=== PATIENT | female | born 1960 | race Caucasian/White ===

== ENCOUNTER 2018-07-25 14:02 | Outpatient (CLI) | payer MEDICAID ==
--- NOTE | 2018-07-25 15:46 | XRAY Report ---
Reason: PERSONAL HX OF TUBERCULOSIS Procedure Date: 07/25/2018 Accession Number: [id number] / [id number] Procedure: XRN - Chest 2 View X-Ray CPT Code: 63377 FULL RESULT: EXAM: CHEST RADIOGRAPHY EXAM DATE: 07/25/2018 02:48 PM. CLINICAL HISTORY: Personal history of tuberculosis. COMPARISON: None. TECHNIQUE: 2 views. FINDINGS: Lungs/Pleura: No focal opacities evident. No pleural effusion. No pneumothorax. Normal volumes. Mediastinum: Heart and mediastinal contours are unremarkable with no definite plain radiographic evidence of calcified mediastinal or hilar lymph nodes. Other: None. IMPRESSION: No evidence of active airspace disease and no definite calcified mediastinal/hilar lymph nodes. RADIA
== END 2018-07-25 14:03 | disposition home or self-care (01) ==
LOC: EDSEX → DI.N 14:02
PROVIDERS: ATTEND Naprapath
DX: Z86.11 Personal history of tuberculosis (principal)
CPT/HCPCS: 71046

== ENCOUNTER 2018-07-25 14:07 | Outpatient (CLI) | payer MEDICAID ==
--- NOTE | 2018-07-26 10:40 | Mammography Report ---
Reason: screening exam Procedure Date: 07/25/2018 Accession Number: [id number] / [id number] Procedure: MGN - Screening Mammo Dig w/Implants CPT Code: FULL RESULT: EXAM: Screening Mammo Dig w/Implants DATE: 07/25/2018 2:49 PM CLINICAL HISTORY: Screening examination. TECHNIQUE: (B) - Bilateral CC and MLO views were obtained. COMPARISON: None PARENCHYMAL PATTERN: (A) - The breasts demonstrate scattered fibroglandular densities bilaterally. FINDINGS: Bilateral breast implants are intact. There are no suspicious masses, calcifications, or areas of distortion. IMPRESSION: Negative examination. BI-RADS category 1. RECOMMENDATION: (ANNUAL) - Recommend routine annual screening mammography. BI-RADS CATEGORY: (1) - Negative. STANDARD QUALIFYING STATEMENTS: 1. This examination was reviewed with the aid of Computer-Aided Detection (CAD). 2. A negative or benign imaging report should not preclude biopsy if clinically suspicious findings are present. 3. Dense breasts may obscure an underlying neoplasm. 4. This examination was reviewed without the aid of 3D breast imaging (tomosynthesis).
== END 2018-07-25 14:08 | disposition home or self-care (01) ==
LOC: DI.N 14:07
PROVIDERS: ATTEND Naprapath
DX: Z12.31 Encounter for screening mammogram for malignant neoplasm of breast (principal)
CPT/HCPCS: 77067

== ENCOUNTER 2018-11-25 18:10 | Emergency (ER) | payer MEDICAID ==
--- NOTE | 2018-11-25 18:38 | ED Physician Documentation ---
PD HPI GI BLEED - Stated complaint Stated Complaint: FEMALE /BLEED/DIZZY - Chief complaint Chief Complaint: Abd Pain - History obtained from History obtained from: Patient - History of Present Illness Timing - onset: How many days ago (8) Timing - duration: Days (8) Timing - details: Gradual onset, Waxing and waning Associated symptoms: BRBPR (small amounts red blood with BMs the past week, increased to more blood with small clots the past 1-2 days. Having persistent LLQ pain. No prior similar.), Abdominal pain (LLQ). No: Vomiting, Diarrhea, Constipation Contributing factors: No: Sick contact, Bad food, Recent antibiotics Improved by: No: Eating, BM Worsened by: No: Eating Similar symptoms before: Has not had sx before Recently seen: Not recently seen Review of Systems Constitutional: denies: Fever, Chills, Myalgias Nose: denies: Rhinorrhea / runny nose, Congestion Throat: denies: Sore throat Cardiac: denies: Chest pain / pressure Respiratory: denies: Cough GI: reports: Abdominal Pain, Nausea, Bloody / black stool (bright red, no melena). denies: Abdominal Swelling, Vomiting, Constipation, Diarrhea : denies: Dysuria, Frequency, Discharge, Vaginal bleeding Skin: denies: Rash Musculoskeletal: denies: Back pain Neurologic: reports: Generalized weakness. denies: Focal weakness, Numbness, Near syncope PD PAST MEDICAL HISTORY - Past Medical History Cardiovascular: None Respiratory: None GI: None - Past Surgical History Past Surgical History: No - Present Medications Home Medications: Ambulatory Orders Medication Instructions Recorded Confirmed Amox/Clav 875/125 [Augmentin] 1 each PO Q12H #14 tablet 11/25/18 Hormones 11/25/18 Naproxen 500 mg PO BID #14 tablet 11/25/18 - Allergies Allergies/Adverse Reactions: Allergies Allergy/AdvReac Type Severity Reaction Status Date / Time No Known Drug Allergies Allergy Verified 11/25/18 18:31 PD ED PE NORMAL - Vitals Vital signs reviewed: Yes - General General: Alert and oriented X 3, No acute distress, Well developed/nourished - HEENT HEENT: Moist mucous membranes, Pharynx benign - Neck Neck: Supple, no meningeal sign, No adenopathy - Cardiac Cardiac: RRR, No murmur - Respiratory Respiratory: Clear bilaterally - Abdomen Abdomen: Normal bowel sounds, Soft, Non distended, No organomegaly, Other (tender without guarding nor percussion tenderness LLQ. No rebound tenderness. ) - Female Female : Deferred - Rectal Rectal: Other (no hemorrhoids. Small trace red blood in vault. No clots nor melena appearance. ) - Back Back: No CVA TTP - Derm Derm: Normal color, Warm and dry - Extremities Extremities: No deformity, No tenderness to palpate, No edema, No calf tenderness / cord - Neuro Neuro: Alert and oriented X 3, No motor deficit, Normal speech Results - Vitals Vitals: Oxygen O2 Source Room air - Labs Labs: Laboratory Tests 11/25/18 11/25/18 11/25/18 18:55 18:55 18:55 WBC 5.3 RBC 3.92 L Hgb 12.7 Hct 38.2 MCV 97.4 MCH 32.4 H MCHC 33.2 RDW 13.0 Plt Count 229 MPV 9.4 Neut # (Auto) 2.7 Lymph # (Auto) 1.8 [place] # (Auto) 0.6 Eos # (Auto) 0.1 Baso # (Auto) 0.0 Absolute Nucleated RBC 0.00 Nucleated RBC % 0.0 PT 10.9 INR 1.0 APTT 32.9 Sodium Potassium Chloride Carbon Dioxide Anion Gap BUN Creatinine Estimated GFR (MDRD) Glucose Calcium Total Bilirubin AST ALT Alkaline Phosphatase Total Protein Albumin Globulin Albumin/Globulin Ratio Lipase Blood Type O POSITIVE Antibody Screen NEGATIVE 11/25/18 18:55 WBC RBC Hgb Hct MCV MCH MCHC RDW Plt Count MPV Neut # (Auto) Lymph # (Auto) [place] # (Auto) Eos # (Auto) Baso # (Auto) Absolute Nucleated RBC Nucleated RBC % PT INR APTT Sodium 140 Potassium 3.6 Chloride 106 Carbon Dioxide 25 Anion Gap 9.0 BUN 13 Creatinine 0.7 Estimated GFR (MDRD) 86 L Glucose 180 H Calcium 9.7 Total Bilirubin 0.4 AST 22 ALT 19 Alkaline Phosphatase 56 Total Protein 7.0 Albumin 4.1 Globulin 2.9 Albumin/Globulin Ratio 1.4 Lipase 31 Blood Type Antibody Screen - Rads (name of study) abd/pelvic CT Radiology: Prelim report reviewed (mild to moderate diverticulosis; no masses nor focal lesions. ), See rad report PD MEDICAL DECISION MAKING - ED course Complexity details: reviewed results (no acute process seen. Has moderate diverticulosis and with her LLQ pain and hematachezia, I presume some localized diverticulitis not apparent on CT. Will treat that way. Suggested having follow up colonoscopy in near future even if improved. ), considered differential, d/w patient Departure - Departure Disposition: 01 Home, Self Care Clinical Impression: Acute diverticulitis, Acute lower GI bleeding Condition: Stable Record reviewed to determine appropriate education?: Yes Instructions: ED Hematochezia Stable Prescriptions: Amox/Clav 875/125 [Augmentin] 1 each PO Q12H #14 tablet Naproxen 500 mg PO BID #14 tablet Comments: Stay well-hydrated. Your CT scan showed diverticula in the lower left intestine and given the discomfort in that area as well as the rectal bleeding, I presume there is some diverticulitis. There was not an obviously identified abscess or locus of diverticulitis on the scan per se. We will treat this with staying well-hydrated and anti-inflammatories of naproxen twice daily for a week as well as Augmentin twice daily for a week for presumed early infection. That would be the most likely cause of it to be bleeding. Your blood count is good so you will are still in a safe margin regarding a bit more bleeding. So we will see how this does over the next 2 to 3 days and see if it clears up with the bleeding and the pain in the lower belly. If you not completely resolved by Wednesday, then return to the ER for further evaluation. If you have significant increase in bleeding or pain or fever meanwhile, then return as well. Discharge Date/Time: 11/25/18 21:00
[2018-11-25] MEDS ORDERED: SODIUM CHLORIDE 0.9% 1,000 ML IV ONE (18:53)
[2018-11-25 19:05] LABS: BASOPHILS % (AUTO) 0.6 %; EOSINOPHILS # (AUTO) 0.1 10^3/uL (0.0-0.7); EOSINOPHILS % (AUTO) 1.5 %; HGB - HEMOGLOBIN 12.7 g/dL (12.0-16.0); LYMPHOCYTES # (AUTO) 1.8 10^3/uL (1.5-3.5); LYMPHOCYTES % (AUTO) 34.2 %; MEAN CORPUSCULAR HEMOGLOBIN 32.4 pg (27.0-31.0); MEAN CORPUSCULAR HGB CONC 33.2 g/dL (32.0-36.0); MEAN CORPUSCULAR VOLUME 97.4 fL (81.0-99.0); MEAN PLATELET VOLUME 9.4 fL (7.9-10.8); MONOCYTES # (AUTO) 0.6 10^3/uL (0.0-1.0); NEUTROPHILS # (AUTO) 2.7 10^3/uL (1.5-6.6); NEUTROPHILS % (AUTO) 51.5 %; PLT - PLATELET COUNT 229 10^3/uL (130-450); RED BLOOD COUNT 3.92 10^6/uL (4.20-5.40); WHITE BLOOD COUNT 5.3 x10^3/uL (4.8-10.8)
[2018-11-25] MEDS ORDERED: IOVERSOL 320 100 ML VIAL IVP ONE ×2 (19:07→19:39)
[2018-11-25 19:21] LABS: ALBUMIN 4.1 g/dL (3.2-5.5); ALBUMIN/GLOBULIN RATIO 1.4 (1.0-2.2); BILIRUBIN,TOTAL 0.4 mg/dL (0.2-1.0); CALCIUM 9.7 mg/dL (8.5-10.3); CREATININE 0.7 mg/dL (0.4-1.0); PT - PROTHROMBIN TIME 10.9 secs (9.9-12.6)
[2018-11-25 19:29] LABS: PARTIAL THROMBOPLASTIN TIME 32.9 secs (24.9-33.3)
--- NOTE | 2018-11-25 20:08 | CT Report ---
Reason: LLQ pain and rectal bleeding for a week Procedure Date: 11/25/2018 Accession Number: [id number] / [id number] Procedure: CT - Abdomen/Pelvis W CPT Code: FULL RESULT: EXAM: CT ABDOMEN AND PELVIS EXAM DATE: 11/25/2018 07:33 PM. CLINICAL HISTORY: Left lower quadrant pain and rectal bleeding for 1 week. COMPARISONS: None. TECHNIQUE: Routine helical CT imaging was performed through the abdomen and pelvis. IV contrast: OPTI 320 100ML. Enteric contrast: No. Reconstructions: Coronal and sagittal. In accordance with CT protocol optimization, one or more of the following dose reduction techniques were utilized for this exam: automated exposure control, adjustment of mA and/or KV based on patient size, or use of iterative reconstructive technique. FINDINGS: Lung Bases: Unremarkable. Liver: Normal. No masses. Gallbladder/Bile Ducts: Unremarkable. Spleen: Normal. Pancreas: Normal. Adrenal Glands: Normal. Kidneys: Normal. No masses or hydronephrosis. Peritoneal Cavity/Bowel: Mild to moderate diverticulosis of the sigmoid and descending colon present. No acute inflammatory changes or mass lesion identified. No bowel obstruction or constipation evident. The appendix is well visualized and normal. Pelvic Organs: The bladder, uterus, adnexa and rectum are within normal limits. Vasculature: No aneurysms or other significant abnormality. Bones: Moderate L5-S1 disk space loss and degenerative disease noted. Other: None. IMPRESSION: 1. No bowel inflammatory process, mass or obstruction evident. 2. Mild to moderate distal colonic diverticulosis. RADIA
[2018-11-25] MEDS ORDERED: AMOX/CLAV 875 MG/125 MG TABLET PO STA (20:30)
[2018-11-25] MEDS ORDERED: KETOROLAC 15 MG/ML VIAL IVP STA (20:30)
[2018-11-25] MEDS ORDERED: DEXAMETHASONE 10 MG/ML VIAL IVP STA (20:30)
[2018-11-25 20:55] VITALS: BP 147/74
== END 2018-11-25 21:00 | disposition home or self-care (01) ==
LOC: ED 18:10
DX: K57.92 Diverticulitis of intestine, part unspecified, without perforation or abscess without bleeding (principal)
CPT/HCPCS: 36415; 74177; 80053; 83690; 85025; 85610; 85730; 86850; 86900; 86901; 96361; 96374; 96375; 99284; A9270; Q9967

== ENCOUNTER 2019-02-04 15:06 | Emergency (ER) | payer MEDICAID ==
[2019-02-04 15:13] VITALS: BP 139/78
--- NOTE | 2019-02-04 15:37 | ED Physician Documentation ---
PD HPI FEMALE - Stated complaint Stated Complaint: FEMALE - Chief complaint Chief Complaint: UTI - History obtained from History obtained from: Patient - History of Present Illness Timing - onset: How many days ago Timing - duration: Weeks (1) Timing - details: Gradual onset Associated symptoms: Abdominal pain, Back pain, Dysuria, Urinary frequency, Other (Urinary hesitancy). No: Fever, Vaginal bleeding, Vaginal discharge, Hematuria Contributing factors: No: , Sexually active Recently seen: Not recently seen - Additional information Additional information: Is a 58-year-old woman who presents with complaints of pressure and suprapubic swelling that is been there throughout the week at work. 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 She been having issues all week a lot of burning and hesitancy and only dribbling when she does urinate. She has not seen any blood. She denies sexual activity. She does have some lower back pain. She is perimenopausal and just has sporadic menstrual cycles and using compounded hormones. She has had urinary tract infections in the past but none for years she cannot remember the last [employer] appointment. No nausea or vomiting or fever. Review of Systems Constitutional: denies: Fever GI: denies: Nausea, Vomiting : reports: Dysuria, Frequency, Hesitancy, Irregular menses (Sporadic menses). denies: Hematuria, Vaginal bleeding Musculoskeletal: reports: Back pain PD PAST MEDICAL HISTORY - Past Medical History Cardiovascular: None Respiratory: None GI: None - Past Surgical History Past Surgical History: No - Present Medications Home Medications: Ambulatory Orders Medication Instructions Recorded Confirmed Amox/Clav 875/125 [Augmentin] 1 each PO Q12H #14 tablet 11/25/18 Hormones 11/25/18 Naproxen 500 mg PO BID #14 tablet 11/25/18 Nitrofurantoin Monohyd/M-Cryst 100 mg PO BID #14 capsule 02/04/19 [Macrobid 100 mg Capsule] Phenazopyridine HCl [Pyridium] 200 mg PO TID PRN #6 tablet 02/04/19 - Allergies Allergies/Adverse Reactions: Allergies Allergy/AdvReac Type Severity Reaction Status Date / Time No Known Drug Allergies Allergy Verified 11/25/18 18:31 - Social History Does the pt smoke?: No Smoking Status: Never smoker Does the pt drink ETOH?: Yes Does the pt have substance abuse?: No - POLST Patient has POLST: No PD ED PE NORMAL - Vitals Vital signs reviewed: Yes - General General: Alert and oriented X 3, No acute distress, Well developed/nourished - HEENT HEENT: Atraumatic - Cardiac Cardiac: RRR, No murmur - Respiratory Respiratory: No respiratory distress - Abdomen Abdomen: Normal bowel sounds, Soft, Other (Minimal suprapubic tenderness) - Back Back: No CVA TTP - Derm Derm: Normal color, No rash - Extremities Extremities: No edema - Neuro Neuro: Alert and oriented X 3, Normal speech Results - Vitals Vitals: Vital Signs - 24 hr 02/04/19 15:10 Temperature 36.9 C Heart Rate 87 Respiratory 14 Rate Blood Pressure 139/78 H O2 Saturation 100 Oxygen O2 Source Room air - Labs Labs: Laboratory Tests 02/04/19 15:29 Urine Color YELLOW Urine Clarity HAZY Urine pH 7.0 Ur Specific [place] 1.015 Urine Protein NEGATIVE Urine Glucose (UA) NEGATIVE Urine Ketones NEGATIVE Urine Occult Blood NEGATIVE Urine Nitrite NEGATIVE Urine Bilirubin NEGATIVE Urine Urobilinogen 0.2 (NORMAL) Ur Leukocyte Esterase SMALL H Urine RBC 11-25 H Urine WBC >25 H Ur Squamous Epith Cells FEW Squamous Urine Bacteria Few Ur Microscopic Review INDICATED Urine Culture Comments INDICATED PD MEDICAL DECISION MAKING - ED course Complexity details: reviewed results, d/w patient ED course: Urinalysis does show leukocyte esterase with greater than 25 white blood cells per high-power field and cultures been obtained. Patient was placed on Macrobid twice daily for 7 days, instructed to drink lots of water and given prescription for Pyridium 200 mg 3 times daily as needed for 3 days. Follow-up if the urinary symptoms are not improving. A culture has been set up. Departure - Departure Disposition: 01 Home, Self Care Clinical Impression: Urinary tract infection Qualifiers: Urinary tract infection type: acute cystitis Hematuria presence: without hematuria Qualified Code(s): N30.00 - Acute cystitis without hematuria Condition: Good Instructions: ED UTI Cystitis Female Follow-Up: SHIVAM CELAYA [Primary Care Provider] - Prescriptions: Nitrofurantoin Monohyd/M-Cryst [Macrobid 100 mg Capsule] 100 mg PO BID #14 capsule Phenazopyridine HCl [Pyridium] 200 mg PO TID PRN #6 tablet PRN Reason: dysuria Comments: Make sure that you are drinking plenty of water. Take the Macrobid antibiotic twice a day for 7 days. May use the Pyridium tablets up to 3 times a day if needed for the next 2 days. Do not wear contact lenses if you are taking the Pyridium and it may turn your urine bright orange. Follow-up with your primary care provider if your symptoms are not improving in the next 48 hours or return if they are worsening to include fever, vomiting or increasing back pain.
[2019-02-04 15:39] LABS: BILIRUBIN,URINE NEGATIVE (NEGATIVE); GLUCOSE, URINE (UA) NEGATIVE (NEGATIVE); KETONES,URINE (UA) NEGATIVE (NEGATIVE); LEUKOCYTE ESTERASE, URINE SMALL (NEGATIVE); NITRITE,URINE NEGATIVE (NEGATIVE); OCCULT BLOOD,URINE NEGATIVE (NEGATIVE); PROTEIN,URINE NEGATIVE (NEGATIVE); UROBILINOGEN,URINE 0.2 (NORMAL) E.U./dL (NORMAL)
[2019-02-04 15:41] LABS: CLARITY,URINE HAZY (CLEAR)
[2019-02-04 15:52] LABS: BACTERIA,URINE Few /HPF (None Seen); SQUAMOUS EPITHELIAL CELL,UR FEW Squamous (<= Few)
== END 2019-02-04 16:24 | disposition home or self-care (01) ==
LOC: ED 15:06
DX: N30.00 Acute cystitis without hematuria (principal)
CPT/HCPCS: 81001; 81003; 87077; 87086; 87181; 99283; 99284

== ENCOUNTER 2020-04-18 15:14 | Outpatient (CLI) | payer MEDICAID ==
--- OUTSIDE RECORDS SUMMARY | 2020-04-24 01:16 | EXTERNAL MEDICAL SUMMARY RPT | Continuity of Care Document ---
:1960 Demographics Phone Unavailable Preferred Language Unknown Marital Status Unknown Gnosticism Affiliation Unknown Race Unknown Ethnic Group Unknown Author Organization [place] Address [address] [phone] Phone Care Team Providers Name Role Phone SHIVAM CELAYA Unavailable Unavailable Allergies date description facility AMOXICILLIN [facility] IODINATED CONTRAST MEDIA [facility] METRIZAMIDE [facility] DILTIAZEM [facility] IODINE [facility] No Known Drug Allergies [facility] Results test status date ordered by attending specimen luz e null F 2020-04-18 LANG.99 JAE DARCI 04-18 15:15:00 10:50:00 facility observation status value reference units lab [facility] NEGAT[facility] unknown See [facility] [place] s eparate report - Report scanned to Patient' s EMR. Testing [facility] History date description facility [id number]
== END 2020-04-18 15:15 | disposition home or self-care (01) ==
LOC: COV 15:14
PROVIDERS: ATTEND Family Medicine
DX: R05 Cough (principal); R06.02 Shortness of breath; M79.10 Myalgia, unspecified site; R68.83 Chills (without fever); R07.0 Pain in throat; R19.7 Diarrhea, unspecified; R09.81 Nasal congestion; J34.89 Other specified disorders of nose and nasal sinuses; Z20.822 Contact with and (suspected) exposure to COVID-19

== ENCOUNTER 2020-04-24 13:30 | Emergency (ER) | payer MEDICAID ==
[2020-04-24 14:26] LABS: BASOPHILS % (AUTO) 0.8 %; EOSINOPHILS # (AUTO) 0.2 10^3/uL (0.0-0.7); EOSINOPHILS % (AUTO) 3.3 %; LYMPHOCYTES # (AUTO) 1.3 10^3/uL (1.5-3.5); LYMPHOCYTES % (AUTO) 26.9 %; MEAN CORPUSCULAR HEMOGLOBIN 31.7 pg (27.0-31.0); MEAN CORPUSCULAR HGB CONC 32.8 g/dL (32.0-36.0); MEAN CORPUSCULAR VOLUME 96.6 fL (81.0-99.0); MEAN PLATELET VOLUME 9.2 fL (7.9-10.8); MONOCYTES # (AUTO) 0.5 10^3/uL (0.0-1.0); MONOCYTES % (AUTO) 10.4 %; NEUTROPHILS # (AUTO) 2.9 10^3/uL (1.5-6.6); NEUTROPHILS % (AUTO) 58.4 %; PLT - PLATELET COUNT 224 10^3/uL (130-450); RED BLOOD COUNT 4.73 10^6/uL (4.20-5.40); RED CELL DISTRIBUTION WIDTH 13.2 % (12.0-15.0); WHITE BLOOD COUNT 4.9 x10^3/uL (4.8-10.8)
[2020-04-24 14:40] LABS: ALBUMIN 4.1 g/dL (3.2-5.5); ALBUMIN/GLOBULIN RATIO 1.4 (1.0-2.2); BILIRUBIN,TOTAL 0.8 mg/dL (0.2-1.0); CREATININE 0.8 mg/dL (0.4-1.0); TOTAL PROTEIN 7.1 g/dL (6.7-8.2)
--- NOTE | 2020-04-24 15:00 | XRAY Report ---
PROCEDURE: Chest 1 View X-Ray INDICATIONS: Chest Pain TECHNIQUE: One view of the chest was acquired. COMPARISON: Chest x-ray 11/24/2018 FINDINGS: Surgical changes and devices: None. Lungs and pleura: No pleural effusions or pneumothorax. Lungs are clear. Mediastinum: Mediastinal contours appear normal. Heart size is normal. Bones and chest wall: No suspicious bony lesions. Overlying soft tissues appear unremarkable. IMPRESSION: No acute pulmonary process. Reviewed by: Karolina Thompson MD on 04/24/2020 2:59 PM [facility] Approved by: Karolina Thompson MD on 04/24/2020 2:59 PM [facility] Station ID: [id number]
--- NOTE | 2020-04-24 15:29 | ED Physician Documentation ---
PD HPI CHEST PAIN - Stated complaint Stated Complaint: SOA - Chief complaint Chief Complaint: Cardiac - History obtained from History obtained from: Patient - Additional information Additional information: 59-year-old woman with history of left bundle branch block became sick about 6 days ago with body aches, fevers, shortness of breath and palpitations. She got checked for coronavirus which was negative. She still has the palpitations which are most concerning to her. It is like a hard heartbeat and then a skip. There is no pain with it. She continues to be short of breath. Denies pedal e mil or calf pain. Review of Systems Ten Systems: 10 systems reviewed and negative Constitutional: reports: Fever, Chills Cardiac: reports: Palpitations Respiratory: reports: Dyspnea. denies: Cough PD PAST MEDICAL HISTORY - Past Medical History Cardiovascular: None Respiratory: None GI: None - Past Surgical History Past Surgical History: No - Present Medications Home Medications: Ambulatory Orders Medication Instructions Recorded Confirmed Amox/Clav 875/125 [Augmentin] 1 each PO Q12H #14 tablet 11/25/18 Hormones 11/25/18 Naproxen 500 mg PO BID #14 tablet 11/25/18 Nitrofurantoin Monohyd/M-Cryst 100 mg PO BID #14 capsule 02/04/19 [Macrobid 100 mg Capsule] Phenazopyridine HCl [Pyridium] 200 mg PO TID PRN #6 tablet 02/04/19 - Allergies Allergies/Adverse Reactions: Allergies Allergy/AdvReac Type Severity Reaction Status Date / Time No Known Drug Allergies Allergy Verified 04/24/20 13:44 - Social History Does the pt smoke?: No Smoking Status: Never smoker Does the pt drink ETOH?: Yes Does the pt have substance abuse?: No - POLST Patient has POLST: No PD ED PE NORMAL - Vitals Vital signs reviewed: Yes - General General: Alert and oriented X 3, No acute distress - HEENT HEENT: PERRL, EOMI - Neck Neck: Supple, no meningeal sign, No bony TTP - Cardiac Cardiac: RRR, No murmur - Respiratory Respiratory: No respiratory distress, Clear bilaterally - Abdomen Abdomen: Normal bowel sounds, Soft, Non tender - Back Back: No CVA TTP, No spinal TTP - Derm Derm: Normal color, Warm and dry - Extremities Extremities: No edema, No calf tenderness / cord - Neuro Neuro: Alert and oriented X 3, No motor deficit, No sensory deficit, Normal speech Results - Vitals Vitals: Vital Signs - 24 hr 04/24/20 04/24/20 04/24/20 13:36 15:43 16:23 Temperature 36.4 C L Heart Rate 75 77 75 Respiratory 14 18 19 Rate Blood Pressure 139/82 H 120/60 133/78 H O2 Saturation 98 100 99 Oxygen O2 Source Room air - EKG (time done) 1344 Rate: Rate (enter#) (68) Rhythm: NSR, LAE Intervals: LBBB Ischemia: Normal ST segments Computer interpretation: Agree with computer - Labs Labs: Laboratory Tests 04/24/20 04/24/20 04/24/20 14:20 14:20 14:20 WBC 4.9 RBC 4.73 Hgb 15.0 Hct 45.7 MCV 96.6 MCH 31.7 H MCHC 32.8 RDW 13.2 Plt Count 224 MPV 9.2 Neut # (Auto) 2.9 Lymph # (Auto) 1.3 L [place] # (Auto) 0.5 Eos # (Auto) 0.2 Baso # (Auto) 0.0 Absolute Nucleated RBC 0.00 Nucleated RBC % 0.0 Sodium 138 Potassium 4.3 Chloride 103 Carbon Dioxide 25 Anion Gap 10.0 BUN 15 Creatinine 0.8 Estimated GFR (MDRD) 74 L Glucose 134 H Calcium 10.0 Total Bilirubin 0.8 AST 30 ALT 27 Alkaline Phosphatase 86 Troponin I High Sens < 2.3 L B-Natriuretic Peptide Total Protein 7.1 Albumin 4.1 Globulin 3.0 Albumin/Globulin Ratio 1.4 Lipase 39 04/24/20 04/24/20 04/24/20 14:20 15:38 15:38 WBC RBC Hgb Hct MCV MCH MCHC RDW Plt Count MPV Neut # (Auto) Lymph # (Auto) [place] # (Auto) Eos # (Auto) Baso # (Auto) Absolute Nucleated RBC Nucleated RBC % Sodium Potassium Chloride Carbon Dioxide Anion Gap BUN Creatinine Estimated GFR (MDRD) Glucose Calcium Total Bilirubin AST ALT Alkaline Phosphatase Troponin I High Sens < 2.3 L B-Natriuretic Peptide 48 44 Total Protein Albumin Globulin Albumin/Globulin Ratio Lipase PD MEDICAL DECISION MAKING - ED course ED course: 59 yo F with known Left bundle branch block, palpitations in the setting of a viral syndrome, recent negative Covid test, will repeat, will observe her in the emergency department on the monitor and add on troponin and BNP to the basic work-up that has already been performed on my evaluation which includes basic blood work which is unremarkable and a 1 view chest x-ray which was negative. 59 yo Woman with known left bundle branch block presents with palpitations in the setting of an improving viral illness. BNP and troponin were added on and negative. She had no ectopy on the monitor while here. Prior to discharge patient asked for a flu swab. I discussed with her that since the rate of fluid in the community is very low, since she has been sick for a week and as such would not be a candidate for antviral therapy, And finally that there is a shortage of the swabs I do not think it is appropriate to perform flu testing and she is understanding. Departure - Departure Disposition: 01 Home, Self Care Clinical Impression: Heart palpitations, Viral syndrome Dyspnea Qualifiers: Dyspnea type: shortness of breath Qualified Code(s): R06.02 - Shortness of breath Condition: Good Record reviewed to determine appropriate education?: Yes Instructions: ED Dyspnea Shortness of Breath Follow-Up: Ilene Minor MD [Provider Admit Priv/Credential] - (She does clinic here in [place]) Comments: EKG showed left bundle branch block, nothing else concerning on labs or chest x- ray. No evidence of cardiac dysfunction or congestive heart failure. Reasonable given the timeframe to follow-up with a firepot operator and tender again. 1 is listed on this form. Return for new or worsening symptoms. You have a Covid test pending. You need to self quarantine until the result is done and negative. Do not leave your house. Do not get near anybody. The results should be done in 48 to 72 hours. We will call with a positive result, the fastest way to get a negative result for confirmation though is to go to the hospital website at [email or web address], click on the my [email or web address] tab and sign up for the patient portal. If any friends or family get sick and would like to have a Covid test done, but do not have signs or symptoms that would necessitate being hospitalized, we encourage testing through our coronavirus swabbing station, call [phone] to schedule an appointment.
[2020-04-24 16:23] VITALS: BP 133/78
== END 2020-04-24 16:37 | disposition home or self-care (01) ==
LOC: ED 13:30
DX: R00.2 Palpitations (principal); B34.9 Viral infection, unspecified; R06.02 Shortness of breath; Z20.822 Contact with and (suspected) exposure to COVID-19; I44.7 Left bundle-branch block, unspecified
CPT/HCPCS: 36415; 80053; 83690; 83880; 84484; 85025; 93005; 99284

== ENCOUNTER 2020-09-11 14:43 | Emergency (ER) | payer MEDICAID ==
[2020-09-11] MEDS ORDERED: SODIUM CHLORIDE 0.9% 1,000 ML IV STA (15:01)
[2020-09-11 15:13] LABS: BASOPHILS # (AUTO) 0.1 10^3/uL (0.0-0.1); BASOPHILS % (AUTO) 0.9 %; EOSINOPHILS # (AUTO) 0.1 10^3/uL (0.0-0.7); EOSINOPHILS % (AUTO) 2.5 %; HCT - HEMATOCRIT 44.4 % (37.0-47.0); HGB - HEMOGLOBIN 14.8 g/dL (12.0-16.0); LYMPHOCYTES # (AUTO) 1.8 10^3/uL (1.5-3.5); MEAN CORPUSCULAR HEMOGLOBIN 32.7 pg (27.0-31.0); MEAN CORPUSCULAR HGB CONC 33.3 g/dL (32.0-36.0); MEAN PLATELET VOLUME 9.2 fL (7.9-10.8); MONOCYTES # (AUTO) 0.6 10^3/uL (0.0-1.0); MONOCYTES % (AUTO) 11.1 %; NEUTROPHILS % (AUTO) 53.3 %; PLT - PLATELET COUNT 283 10^3/uL (130-450); RED BLOOD COUNT 4.53 10^6/uL (4.20-5.40); RED CELL DISTRIBUTION WIDTH 13.1 % (12.0-15.0); WHITE BLOOD COUNT 5.6 x10^3/uL (4.8-10.8)
[2020-09-11 15:15] LABS: BILIRUBIN,URINE NEGATIVE (NEGATIVE); CLARITY,URINE CLEAR (CLEAR); GLUCOSE, URINE (UA) NEGATIVE (NEGATIVE); KETONES,URINE (UA) NEGATIVE (NEGATIVE); LEUKOCYTE ESTERASE, URINE NEGATIVE (NEGATIVE); NITRITE,URINE NEGATIVE (NEGATIVE); OCCULT BLOOD,URINE NEGATIVE (NEGATIVE); PROTEIN,URINE NEGATIVE (NEGATIVE); UROBILINOGEN,URINE 0.2 (NORMAL) E.U./dL (NORMAL)
[2020-09-11 15:28] LABS: ALBUMIN 4.5 g/dL (3.2-5.5); ALBUMIN/GLOBULIN RATIO 1.3 (1.0-2.2); BILIRUBIN,TOTAL 0.7 mg/dL (0.2-1.0); CALCIUM 9.8 mg/dL (8.5-10.3); CREATININE 0.8 mg/dL (0.4-1.0); POTASSIUM 4.1 mmol/L (3.5-5.0); TOTAL PROTEIN 7.9 g/dL (6.7-8.2)
[2020-09-11] MEDS ORDERED: IOVERSOL 320 100 ML VIAL IVP ONE ×2 (16:38→21:25)
--- NOTE | 2020-09-11 17:04 | CT Report ---
PROCEDURE: Abdomen/Pelvis W INDICATIONS: LLQ abd pain CONTRAST: IV CONTRAST: Optiray 320 ml: 100 PO CONTRAST: *NO PO CONTRAST TECHNIQUE: After the administration of intravenous contrast, 5 mm thick sections acquired from the diaphragms to the symphysis. 5 mm thick coronal and sagittal reformats were acquired. For radiation dose reducti on, the following was used: automated exposure control, adjustment of mA and/or kV according to prem ent size. COMPARISON: 11/25/2018 FINDINGS: Image quality: Excellent. ABDOMEN: Lung bases: Lung bases are clear. Heart size is normal. Solid organs: Liver and spleen are normal in size and enhancement. Gallbladder is unremarkable. Sriram iary system is non dilated. Pancreas enhances normally. No adrenal nodules. Kidneys demonstrate no rmal size and enhancement, without hydronephrosis. Peritoneum and bowel: Bowel loops demonstrate normal wall thickness and caliber. No free fluid or a ir. There is sigmoid diverticulosis. There is mild inflammatory change in the surrounding fat consist ent with mild sigmoid diverticulitis. Nodes and vessels: No retroperitoneal or mesenteric adenopathy by size criteria. Aorta and inferior vena cava are normal in size. Incidental note made of the presence of a circumaortic left renal vein . Miscellaneous: No ventral hernias. PELVIS: Genitourinary: Bladder wall thickness is normal. Miscellaneous: No inguinal hernias or adenopathy. A 5.1 x 2.4 x 2.2 cm right adnexal cyst has devel oped. Bones: No suspicious bony lesions. No vertebral body compression fractures. IMPRESSION: 1. Mild sigmoid diverticulitis. 2. Development of a fluid-filled structure in the right adnexa measuring 5.1 x 2.4 x 2.2 cm. Differen tial diagnosis includes benign and neoplastic etiologies. Recommend further evaluation with pelvic ul trasound on a nonemergent basis. Reviewed by: Matt Valero MD on 09/11/2020 5:02 PM PDT Approved by: Matt Valero MD on 09/11/2020 5:02 PM PDT Station ID: [id number]
[2020-09-11 17:06] VITALS: BP 133/73
[2020-09-11] MEDS ORDERED: AMOX/CLAV 875 MG/125 MG TABLET PO STA (17:27)
--- NOTE | 2020-09-11 17:30 | ED Physician Documentation ---
PD HPI ABD PAIN - Stated complaint Stated Complaint: ABD PX & BLOATING - Chief complaint Chief Complaint: Abd Pain - History obtained from History obtained from: Patient - Additional information Additional information: Patient comes emergency department chief complaint of twinges of left flank and lower abdominal pain, as well as intermittent left leg weakness. Patient states that this has been going on for over a month, and that she is scheduled to see her primary doctor about it tomorrow. However, she decided to come to the emergency department today for further evaluation first. The patient denies any fevers or chills. No nausea or vomiting. No change in bowel habits. She has not experienced loss of bowel or bladder control. No vaginal bleeding. No dysuria or back pain. No sciatica. Patient has had a general feeling of being bloated in the abdomen. She has a history of diverticulitis previously. Patient denies any history of back issues. No right lower extremity weakness. The patient states she feels like her leg just gives out on her. She states that this happens when she gets the twinge of pain in her left lower quadrant. However, she states that the leg and hips themselves do not feel painful per se. Patient states that her strength is perfectly intact if she is not standing on the left leg and only noticed weakness in certain situations. No other complaints at this time. Review of Systems Ten Systems: 10 systems reviewed and negative Constitutional: reports: Reviewed and negative Eyes: reports: Reviewed and negative Ears: reports: Reviewed and negative Nose: reports: Reviewed and negative Throat: reports: Reviewed and negative Cardiac: reports: Reviewed and negative Respiratory: reports: Reviewed and negative GI: reports: Abdominal Pain. denies: Nausea : reports: Reviewed and negative Skin: reports: Reviewed and negative Musculoskeletal: reports: Reviewed and negative Neurologic: reports: Focal weakness Psychiatric: reports: Reviewed and negative Endocrine: reports: Reviewed and negative Immunocompromised: reports: Reviewed and negative PD PAST MEDICAL HISTORY - Past Medical History Cardiovascular: None Respiratory: None GI: None - Past Surgical History Past Surgical History: No - Present Medications Home Medications: Ambulatory Orders Medication Instructions Recorded Confirmed Amox/Clav 875/125 [Augmentin] 1 each PO Q12H #14 tablet 11/25/18 Hormones 11/25/18 Naproxen 500 mg PO BID #14 tablet 11/25/18 Nitrofurantoin Monohyd/M-Cryst 100 mg PO BID #14 capsule 02/04/19 [Macrobid 100 mg Capsule] Phenazopyridine HCl [Pyridium] 200 mg PO TID PRN #6 tablet 02/04/19 Amox/Clav 875/125 [Augmentin 1 tablet PO Q8H 10 Days #30 tablet 09/11/20 875/125 Tab] - Allergies Allergies/Adverse Reactions: Allergies Allergy/AdvReac Type Severity Reaction Status Date / Time No Known Drug Allergies Allergy Verified 09/11/20 14:57 - Social History Does the pt smoke?: No Smoking Status: Never smoker Does the pt drink ETOH?: Yes Does the pt have substance abuse?: No - POLST Patient has POLST: No PD ED PE NORMAL - Vitals Vital signs reviewed: Yes - General General: Alert and oriented X 3, No acute distress, Well developed/nourished - HEENT HEENT: Atraumatic, PERRL, EOMI, Moist mucous membranes - Neck Neck: Supple, no meningeal sign - Cardiac Cardiac: RRR, No murmur, No gallop, Strong equal pulses - Respiratory Respiratory: No respiratory distress, Clear bilaterally - Abdomen Abdomen: Soft, Non tender, Non distended - Derm Derm: Normal color, Warm and dry, No rash - Extremities Extremities: No deformity, No edema, No calf tenderness / cord - Neuro Neuro: Alert and oriented X 3, hands parter 2-12 intact, No motor deficit (5+ strength in bilateral lower extremities.), No sensory deficit, Normal speech - Psych Psych: Normal mood, Normal affect Results - Vitals Vitals: Vital Signs - 24 hr 09/11/20 09/11/20 09/11/20 14:52 15:01 17:00 Temperature 36.2 C L Heart Rate 76 77 65 Respiratory 14 18 19 Rate Blood Pressure 156/86 H 156/86 H 133/73 H O2 Saturation 98 100 100 Oxygen O2 Source Room air - Labs Labs: Laboratory Tests 09/11/20 09/11/20 09/11/20 14:52 15:07 15:07 WBC 5.6 RBC 4.53 Hgb 14.8 Hct 44.4 MCV 98.0 MCH 32.7 H MCHC 33.3 RDW 13.1 Plt Count 283 MPV 9.2 Neut # (Auto) 3.0 Lymph # (Auto) 1.8 Noble # (Auto) 0.6 Eos # (Auto) 0.1 Baso # (Auto) 0.1 Absolute Nucleated RBC 0.00 Nucleated RBC % 0.0 Sodium 140 Potassium 4.1 Chloride 102 Carbon Dioxide 28 Anion Gap 10.0 BUN 12 Creatinine 0.8 Estimated GFR (MDRD) 73 L Glucose 103 H Calcium 9.8 Total Bilirubin 0.7 AST 28 ALT 25 Alkaline Phosphatase 87 Total Protein 7.9 Albumin 4.5 Globulin 3.4 Albumin/Globulin Ratio 1.3 Lipase 32 Urine Color YELLOW Urine Clarity CLEAR Urine pH 7.0 Ur Specific Boyden 1.010 Urine Protein NEGATIVE Urine Glucose (UA) NEGATIVE Urine Ketones NEGATIVE Urine Occult Blood NEGATIVE Urine Nitrite NEGATIVE Urine Bilirubin NEGATIVE Urine Urobilinogen 0.2 (NORMAL) Ur Leukocyte Esterase NEGATIVE Ur Microscopic Review NOT INDICATED Urine Culture Comments NOT INDICATED - Rads (name of study) CT abd/pelvis Radiology: Final report received, EMP read indepedently, See rad report (Mild diverticulitis; new cystic mass L adnexa, benign vs malignant) PD MEDICAL DECISION MAKING - ED course Complexity details: reviewed results, re-evaluated patient, considered differential, d/w patient ED course: Patient was worked up with labs, urinalysis, and ultimately, CT scan of the abdomen and pelvis. Patient was found to have diverticulitis and a new cystic mass on the right ovary which could be benign or malignant per radiologist. I discussed both findings with the patient and started her on Augmentin. I emphasized how important it is for her to follow-up with [facility] to further evaluate this finding of the ovary as soon as possible. I have given her the contact information for a local [facility] clinic and patient states she will call very soon to make an appointment. We have discussed the usual indications for return. Departure - Departure Disposition: 01 Home, Self Care Clinical Impression: Diverticulitis of gastrointestinal tract, Adnexal mass Instructions: ED Diverticulitis, ED Cyst Ovarian Follow-Up: Roxann Alegria MD [Provider Admit Priv/Credential] - Prescriptions: Amox/Clav 875/125 [Augmentin 875/125 Tab] 1 tablet PO Q8H 10 Days #30 tablet Comments: Your labs and urinalysis look great. Your CT scan shows some mild diverticulitis for which you have been started on antibiotics today. Also show ing up on your CT scan is a new right ovarian cystic mass, which could be benign or cancerous. As such, it is important that you follow-up with gynecology as soon as possible to further evaluate this finding. Please take the antibiotics as directed until gone.
== END 2020-09-11 17:38 | disposition home or self-care (01) ==
LOC: ED 14:43
DX: K57.32 Diverticulitis of large intestine without perforation or abscess without bleeding (principal); N83.201 Unspecified ovarian cyst, right side
CPT/HCPCS: 36415; 74177; 80053; 81003; 83690; 85025; 99284; A9270; Q9967; 81001; 87086

== ENCOUNTER 2020-09-12 16:22 | Outpatient (CLI) | payer MEDICAID ==
--- NOTE | 2020-09-12 16:41 | XRAY Report ---
PROCEDURE: Chest 2 View X-Ray INDICATIONS: Asthma, history of TB TECHNIQUE: 2 view(s) of the chest. COMPARISON: 04/24/2020 FINDINGS: Surgical changes and devices: None. Lungs and pleura: No pleural effusions or pneumothorax. Lungs are clear. Mediastinum: Mediastinal contours are normal. Heart size is normal. Bones and chest wall: No suspicious bony abnormalities. Soft tissues appear unremarkable. IMPRESSION: No acute cardiopulmonary process demonstrated radiographically. Reviewed by: Robert Salvador MD on 09/12/2020 4:39 PM PDT Approved by: Robert Salvador MD on 09/12/2020 4:39 PM PDT Station ID: [id number]
== END 2020-09-12 16:23 | disposition home or self-care (01) ==
LOC: DI 16:22
PROVIDERS: ATTEND Naprapath
DX: J45.909 Unspecified asthma, uncomplicated (principal); Z86.11 Personal history of tuberculosis

== ENCOUNTER 2021-07-04 15:43 | Emergency (ER) | payer MEDICAID ==
--- NOTE | 2021-07-04 16:07 | ED Physician Documentation ---
PD HPI DYSPNEA - Stated complaint Stated Complaint: SOA/COUGH/LT SIDE PX/SORE THROAT - Chief complaint Chief Complaint: Resp - History obtained from History obtained from: Patient - Additional information Additional information: 61-year-old woman with history of left bundle branch block otherwise healthy presents with 2 weeks of nonproductive cough and worsening shortness of breath as well as pleuritic left lower chest pain that is much worse with coughing. She denies pedal edema or calf pain. No exertional chest pain. She is tried numerous [id number] regimens without relief. She has had low-grade tactile fevers. Review of Systems Constitutional: denies: Fever, Chills Nose: denies: Rhinorrhea / runny nose, Congestion Throat: denies: Sore throat Cardiac: denies: Chest pain / pressure, Palpitations Respiratory: reports: Dyspnea, Cough PD PAST MEDICAL HISTORY - Past Medical History Cardiovascular: None Respiratory: None GI: None - Past Surgical History Past Surgical History: No - Present Medications Home Medications: Ambulatory Orders Medication Instructions Recorded Confirmed Amox/Clav 875/125 [Augmentin] 1 each PO Q12H #14 tablet 11/25/18 Hormones 11/25/18 Naproxen 500 mg PO BID #14 tablet 11/25/18 Nitrofurantoin Monohyd/M-Cryst 100 mg PO BID #14 capsule 02/04/19 [Macrobid 100 mg Capsule] Phenazopyridine HCl [Pyridium] 200 mg PO TID PRN #6 tablet 02/04/19 Amox/Clav 875/125 [Augmentin 1 tablet PO Q8H 10 Days #30 tablet 09/11/20 875/125 Tab] Albuterol Sulf [Ventolin Hfa 1 - 2 puffs INH Q4HR PRN #1 inhaler 07/04/21 Inhaler] Amoxicillin 2 cap PO TID 5 Days #30 cap 07/04/21 Azithromycin [Zithromax] 1 tab PO DAILY #6 tablet 07/04/21 Benzonatate [Tessalon] 200 mg PO QID PRN #20 cap 07/04/21 - Allergies Allergies/Adverse Reactions: Allergies Allergy/AdvReac Type Severity Reaction Status Date / Time No Known Drug Allergies Allergy Verified 07/04/21 15:52 - Social History Does the pt smoke?: No Smoking Status: Never smoker Does the pt drink ETOH?: Yes Does the pt have substance abuse?: No - POLST Patient has POLST: No PD ED PE NORMAL - Vitals Vital signs reviewed: Yes - General General: Alert and oriented X 3, No acute distress - HEENT HEENT: Pharynx benign - Neck Neck: Supple, no meningeal sign, No bony TTP - Cardiac Cardiac: RRR, No murmur - Respiratory Respiratory: No respiratory distress, Other (Crackles L base, frequent cough) - Back Back: No CVA TTP, No spinal TTP - Derm Derm: Normal color, Warm and dry - Extremities Extremities: No edema, No calf tenderness / cord - Neuro Neuro: Alert and oriented X 3, Normal speech Results - Vitals Vitals: Vital Signs - 24 hr 07/04/21 15:48 Temperature 36.8 C Heart Rate 84 Respiratory 18 Rate Blood Pressure 177/88 H O2 Saturation 98 Oxygen O2 Source Room air - Rads (name of study) 1v cxr Radiology: EMP read contemporaneously PD MEDICAL DECISION MAKING - ED course ED course: 61-year-old woman presents with clinical pneumonia in the left base. Chest x- ray was clear but given the low sensitivity of x-ray for pneumonia in the typical clinical picture we will treat with antibiotics. Cough for 2 weeks and later developed pleuritic chest pain. She was feeling better here after Tessalon. She noted that she had been discussing with her daughter by phone who is an RN and wondering if she might need a CBC and troponin. I discussed with her that I thought the yield of this testing would be very low considering her normal vital signs, she is in normal sinus rhythm on the monitor. Only has pain when she coughs etc. After discussion she declined further testing. Departure - Departure Disposition: 01 Home, Self Care Clinical Impression: Pneumonia Qualifiers: Pneumonia type: due to unspecified organism Laterality: left Lung location: lower lobe of lung Qualified Code(s): J18.9 - Pneumonia, unspecified organism Condition: Good Record reviewed to determine appropriate education?: Yes Instructions: Pneumonia Dc Prescriptions: Albuterol Sulf [Ventolin Hfa Inhaler] 1 - 2 puffs INH Q4HR PRN #1 inhaler PRN Reason: Shortness Of Air/Wheezing Amoxicillin 2 cap PO TID 5 Days #30 cap Benzonatate [Tessalon] 200 mg PO QID PRN #20 cap PRN Reason: Cough Azithromycin [Zithromax] 1 tab PO DAILY #6 tablet Comments: I sent your prescriptions to [facility] in [place]. Call your doctor to arrange a follow-up appointment, make the next available appointment. In the interim, return anytime if worse or if new symptoms develop.
[2021-07-04] MEDS: BENZONATATE 100 MG CAPSULE PO STA (16:36)
--- NOTE | 2021-07-04 16:44 | XRAY Report ---
PROCEDURE: Chest 1 View X-Ray INDICATIONS: cough dyspnea TECHNIQUE: One view of the chest was acquired. COMPARISON: 09/12/2020 FINDINGS: Surgical changes and devices: None. Lungs and pleura: No pleural effusions or pneumothorax. Lungs are clear. Mediastinum: Mediastinal contours appear normal. Heart size is normal. Bones and chest wall: No suspicious bony lesions. Overlying soft tissues appear unremarkable. IMPRESSION: No acute cardiopulmonary process demonstrated radiographically. Reviewed by: Robert Salvador MD on 07/04/2021 4:42 PM PDT Approved by: Robert Salvador MD on 07/04/2021 4:42 PM PDT Station ID: [id number]
[2021-07-04 17:13] VITALS: BP 162/92
== END 2021-07-04 17:14 | disposition home or self-care (01) ==
LOC: ED 15:43
DX: J18.9 Pneumonia, unspecified organism (principal)
CPT/HCPCS: 71045; 99283; 99284; A9270

== ENCOUNTER 2023-01-21 12:40 | Emergency (ER) | payer OTHER, MEDICAID ==
[2023-01-21 12:52] VITALS: BP 146/85; O2SAT 98
--- NOTE | 2023-01-21 13:29 | ED Physician Documentation ---
PD HPI UPPER EXT INJURY - Stated complaint Stated Complaint: RT ELBOW PX - Chief complaint Chief Complaint: Ext Problem - History obtained from History obtained from: Patient - Additonal information Additional information: Patient is a 62-year-old female presenting for evaluation of right elbow pain that has been ongoing since early November. She states that she had a fall sometime in the middle of the summer but does not recall her pain necessarily starting right after that. She states that she feels more pain in the right elbow with lifting movements or twisting. She has not sought evaluation for this yet. Her PCP is in [facility] and it is not convenient for her to go there. She has tried occasional acetaminophen or ibuprofen without any significant improvement. She denies doing excess or repetitive movements here recently such as lifting or twisting. Denies radiation of pain elsewhere. Review of Systems Constitutional: denies: Fever Cardiac: denies: Chest pain / pressure Respiratory: denies: Dyspnea Musculoskeletal: reports: Joint pain PD PAST MEDICAL HISTORY - Past Medical History Cardiovascular: None Respiratory: None GI: None - Past Surgical History Past Surgical History: No - Present Medications Home Medications: Ambulatory Orders Medication Instructions Recorded Confirmed Compression Sleeve 1 ea .ROUTE PRN PRN #1 ea 01/21/23 Naproxen 250 mg PO BID PRN #20 tablet 01/21/23 Progesterone, Micronized 100 mg PO DAILY 01/21/23 01/21/23 [Prometrium] estradioL [Estrace] 1 mg PO DAILY 01/21/23 01/21/23 - Allergies Allergies/Adverse Reactions: Allergies Allergy/AdvReac Type Severity Reaction Status Date / Time No Known Drug Allergies Allergy Verified 01/21/23 12:46 - Social History Does the pt smoke?: No Smoking Status: Never smoker Does the pt drink ETOH?: Yes Does the pt have substance abuse?: No - POLST Patient has POLST: No PD ED PE NORMAL - General General: Alert and oriented X 3, No acute distress, Well developed/nourished - HEENT HEENT: Atraumatic - Neck Neck: Supple, no meningeal sign - Cardiac Cardiac: RRR, Strong equal pulses - Respiratory Respiratory: No respiratory distress, Clear bilaterally - Extremities Extremities: No deformity, Normal ROM s pain, No edema, Other (Tenderness over lateral epicondyle of the right elbow, normal range of motion, good strength with flexion and extension at the left elbow, distal pulses intact, no erythema or swelling) - Neuro Neuro: Alert and oriented X 3, No motor deficit, Normal speech Results - Vitals Vitals: Vital Signs - 24 hr 01/21/23 12:42 Temperature 36.4 C L Heart Rate 82 Respiratory 15 Rate Blood Pressure 146/85 H O2 Saturation 98 Oxygen O2 Source Room air PD Medical Decision Making - ED course Complexity details: reviewed results, re-evaluated patient, d/w patient ED course: Patient with right elbow pain that been present for a few months. She reports having a fall earlier this summer. Normal range of motion with no signs of a septic joint. Neurovascularly intact. No pain at the right shoulder or right wrist. An x-ray was obtained which I reviewed I see no fracture or dislocation. She does have tenderness over the lateral epicondyle and I explained my concern for epicondylitis.Discussed treatment options including a compression sleeve, anti-inflammatories and follow-up with PCP. Patient counseled on concerning symptoms to return for. Departure - Departure Disposition: 01 Home, Self Care Clinical Impression: Right elbow pain Condition: Stable Instructions: ED Epicondylitis Lateral Elbow Prescriptions: Compression Sleeve 1 ea .ROUTE PRN PRN #1 ea PRN Reason: Pain 5-7 Naproxen 250 mg PO BID PRN #20 tablet PRN Reason: Pain Comments: I do not see a broken or dislocated bone on your elbow x-ray. You likely have a tendinitis. I given you prescription for compression sleeve. I also sent a prescription for naproxen to [facility] [place]. I would recommend close follow-up with your primary care provider. At this time I would recommend ice, use of the compression sleeve, anti-inflammatories. You may need further evaluation or testing or even referral to physical therapy. Forms: PCP List Discharge Date/Time: 01/21/23 13:37
--- NOTE | 2023-01-21 13:33 | XRAY Report ---
PROCEDURE: Elbow 3 View RT INDICATIONS: pain x 3 months TECHNIQUE: 3 views of the elbow were acquired. COMPARISON: None. FINDINGS: Bones: No acute fractures or dislocations. No suspicious bony lesions. Soft tissues: No effusion. No suspicious soft tissue calcifications or masses. IMPRESSION: No acute osseous abnormality. If there is clinical concern or persistent symptoms, additional imaging such as repeat radiographs or advanced imaging (e.g. CT, MRI) may be helpful for further evaluation. Reviewed by: Santiago Conn MD on 01/21/2023 1:32 PM PDT Approved by: Santiago Conn MD on 01/21/2023 1:32 PM PDT Station ID: [id number]
== END 2023-01-21 13:37 | disposition home or self-care (01) ==
LOC: ED 12:40
DX: M25.521 Pain in right elbow (principal)
CPT/HCPCS: 99283

== ENCOUNTER 2023-01-25 14:58 | Outpatient (CLI) | payer OTHER, MEDICAID ==
--- NOTE | 2023-01-26 09:38 | Mammography Report ---
BILATERAL DIGITAL SCREENING MAMMOGRAM 3D/2D WITH AUGMENTATION: 01/25/2023 CLINICAL: Family history of breast cancer. Routine screening. Comparison is made to exam dated: 07/25/2018 mammogram - [facility]. Both breasts are almost entirely fatty (category a/<25% glandular tissue). Bilateral breast implants are stable. No significant masses, calcifications, or other findings are seen in either breast. There has been no significant interval change. IMPRESSION: NEGATIVE There is no mammographic evidence of malignancy. A 1 year screening mammogram is recommended. Based on the Tyrer Cuzick model (a risk assessment model) the patients lifetime risk is 8.2% and her 10 year risk is 3.4%. According to the ACR, ACS, and NCCN guidelines, an annual breast MRI exam olivia g with mammogram is recommended if the patients lifetime risk is 20% or greater. This exam was interpreted at Station ID: [id number]. NOTE: For mammograms, a report in lay terms will be sent to the patient. Approximately 15% of breast malignancies will not be visualized mammographically. In the management of a palpable breast mass, a negative mammogram must not discourage biopsy of a clinically suspicious lesion. Electronically Signed By: Adam cotton/marylou:01/26/2023 08:49:09 letter sent: No_Letter ACR BI-RADS Category 1: Negative 3341F PARENCHYMAL PATTERN: (F) - The breast(s) demonstrate(s) diffuse fatty replacement. BI-RADS CATEGORY: (1) - 1 Mammogram [id number] 1 year screening LATERALITY: (B)
== END 2023-01-25 14:59 | disposition home or self-care (01) ==
LOC: DI.N 14:58
DX: Z12.31 Encounter for screening mammogram for malignant neoplasm of breast (principal); Z80.3 Family history of malignant neoplasm of breast